=== PATIENT | male | born 1965 | race Caucasian/White ===

== ENCOUNTER 2020-09-17 12:09 | Emergency (ER) | payer OTHER ==
[~2020-09-17] VITALS: Ht 180.3 cm; Wt 88.5 kg
[~2020-09-17 12:09] MED LIST: FLOMAX PO; IBUPROFEN 800800 MG PO; KEFLEX500 MG PO; NOHOMEMEDICATIONS; NORCO 5-325 TA1 EACH PO; ZOFRAN ODT4 MG PO
[2020-09-17 12:55] LABS: ABSOLUTE NEUTROPHILS 7.6 thou/uL (1.4-8.2); BASOPHILS 0.2 % (0.0-2.0); HEMOGLOBIN 14.1 gm/dL (14.0-18.0); LYMPHOCYTES 9.2 % (24.0-44.0); MCH 28.3 pg (26.0-34.0); MCHC 34.5 g/dL (28.0-37.0); MONOCYTES 8.9 % (1.0-8.0); PLATELET COUNT 352 thou/uL (150-400); POLYS 81.7 % (36.0-66.0); RBC 4.99 mil/uL (4.50-6.00); RDW 12.9 % (10.5-14.5); WBC 9.3 thou/uL (4.0-11.0)
[2020-09-17 13:03] LABS: CALCIUM 8.5 mg/dL (8.5-10.1); CREATININE 1.3 mg/dL (0.7-1.3); POTASSIUM 3.9 mmol/L (3.5-5.1)
[2020-09-17 13:09] LABS: ALBUMIN 2.5 g/dL (3.4-5.0); DIRECT BILIRUBIN 0.2 mg/dL (<0.1-0.2); TOTAL BILIRUBIN 0.7 mg/dL (0.2-1.0); TOTAL PROTEIN 6.9 g/dL (6.4-8.2)
[2020-09-17] MEDS ORDERED: TESSALON PERLE100 MG PO (14:59)
[2020-09-17] MEDS ORDERED: ZPAK PO (14:59)
[2020-09-17] MEDS ORDERED: PREDNISONE 20 M20 MG PO (14:59)
[2020-09-17] MEDS ORDERED: ONDANSETRON HCL4 M2 PO (15:09)
[2020-09-17 15:17] VITALS: BP 130/74
[2020-09-17 15:17] LABS: URINE BILIRUBIN NEGATIVE (Negative); URINE BLOOD NEGATIVE (Negative); URINE CLARITY CLEAR; URINE COLOR YELLOW; URINE GLUCOSE-RANDOM* NEGATIVE (Negative); URINE KETONES 1+ (Negative); URINE LEUKOCYTES-REFLEX NEGATIVE (Negative); URINE PROTEIN (DIPSTICK) NEGATIVE (Negative); URINE SPECIFIC GRAVITY 1.015 (1.005-1.035); URINE UROBILINOGEN 0.2 E.U./dl (0.2-1.0)
[2020-09-17 15:22] LABS: URINE NITRITE-REFLEX POSITIVE (Negative)
[2020-09-17 15:28] LABS: CRYSTALS None Seen /LPF (None Seen); SQUAMOUS 0-3 Few /LPF (0-3); URINE WBC-REFLEX 0-5 Rare /HPF (0-5)
--- NOTE | 2020-09-19 07:20 | EKG ---
[facility] [address] [place] [address] ELECTROCARDIOGRAM REPORT Name: EDWARD MCCLELLAN Room #: GURPREET Gonzalez#: [id number] Admission: 09/17/20 Attend Phys: Discharge: 09/17/20 Date of : 69 Report #: [id number] <ELECTRONICALLY SIGNED> By: Berry Ho MD, FACC 09/19/20 0720 1300 1300 Berry Ho MD, FACC /EPI
== END 2020-09-17 15:28 | disposition home or self-care (01) ==
LOC: ER 12:09
PROVIDERS: Nurse Practitioner
DX: U07.1 COVID-19 (principal); E87.1 Hypo-osmolality and hyponatremia; R19.7 Diarrhea, unspecified; R11.2 Nausea with vomiting, unspecified